=== PATIENT | female | born 1955 | race Caucasian/White ===

== ENCOUNTER → 2023-06-26 | Outpatient (CLI) | payer OTHER | END | disposition home or self-care (01) | LOC: RAH 11:07 | PROVIDERS: ATTEND Internal Medicine | DX: Z12.31 Encounter for screening mammogram for malignant neoplasm of breast (principal); I25.10 Atherosclerotic heart disease of native coronary artery without angina pectoris | CPT/HCPCS: 77067 ==

== ENCOUNTER 2024-06-18 18:34 | Emergency (ER) | payer OTHER ==
[~2024-06-18] VITALS: Ht 160 cm; Wt 53.1 kg
[2024-06-18] MEDS: teTANUS/diphthERIA TOXOID [ADULT] 0.5 ML VIAL IM ONE (20:06)
--- NOTE | 2024-06-18 20:20 | HMCIMG ---
CT HEAD/BRAIN W/O CONTRAST CLINICAL HISTORY: fall, lac COMPARISON: None TECHNIQUE: Multiple sequential axial images of the head were obtained from the base of the skull through vertex. CT was performed with one or more of the following dose reduction techniques: automated exposure control, adjustment of the mA and/or kV according to patient size, or use of iterative reconstruction technique FINDINGS: There is mild atrophy and small vessel disease. The orbital contents, paranasal sinuses and mastoid air cells are within normal limits. The calvarium demonstrates nondisplaced occipital skull fracture demonstrated on images 14 through 17 of series 3.. Note is made of a occipital scalp small hematoma. IMPRESSION: Occipital scalp hematoma with underlying nondepressed skull fracture.
--- NOTE | 2024-06-18 20:50 | ERN ---
General Chief Complaint: Head Injury Stated Complaint: HEAD TRAUMA. LACERATION TO POSTERIOR HEAD Time Seen by MD: 18:36 Time Seen by Midlevel: 18:36 Source: patient, family History of Present Illness Initial Comments Patient is a 68-year-old female being brought in by family member for evaluation of a head injury. Patient does admit to drinking vodka in her coffee this morning. Just prior to arrival she states she was walking when her shoe got caught in the carpet and she slipped and fell backwards hitting the back of her head. She denies any loss of consciousness or being on any blood thinners. On arrival patient initially denied any imaging however after further discussion she agreed to get a CT scan of the head. Allergies: Coded Allergies: No Known Allergies (Verified Allergy, 05/21/13) Past Medical History Past Medical History: Diabetes-Type II Past Surgical History: Other ROS Dictation CONSTITUTIONAL: Negative except for HPI HEAD/FACE: Negative except for HPI EENT: Negative except for HPI RESPIRATORY: Negative except for HPI GASTROINTESTINAL/ABDOMINAL: Negative except for HPI GENITOURINARY: Negative except for HPI MUSCULOSKELETAL: Negative except for HPI INTEGUMENTARY: Negative except for HPI NEUROLOGICAL/PSYCH: Negative except for HPI HEMATOLOGIC/LYMPHATIC: Negative except for HPI All Systems Negative, Except as noted above. 13 point review of systems assessed and all negative except for above. Physical Exam Physical Exam Dictation Vital Signs reviewed General Appearance: Alert, oriented x 3, no acute distress, well developed, nourished. Head and Face: non-traumatic. Eyes: PERRL, pink conjunctivas, eyelid no trauma, anterior chamber with arcus senilis. Ears: Pinnas intact and no signs of trauma or erythema ear canals clear and no discharge TM no erythema Nose: No discharge, no bleeding. Oropharynx: Mouth normal, tongue pink, pharynx clear,no erythema, tonsils no exudates, no abscesses noted, mucous membrane moist Neck: Supple, non-tender, no thyromegaly, no masses, no JVD, no bruits Breast:Deferred Chest:No tenderness, no crepitus, no paradoxical movement, no retractions Lungs:Clear, well-ventilated, symmetric, no rales, no wheezing, no rhonchi, no stridor, good breath sounds bilaterally Heart: Regular rate, regular rhythm, no murmur, no gallops Vascular: no peripheral edema, Abdomen: Soft, positive bowel sounds, nondistended, no guarding, nontender, no rebound, no masses no hepatomegaly, no splenomegaly, no Jones's sign, no hernias. Rectal: Deferred Genital: Deferred Neurological: Normal speech, motor function intact, sensory function intact Musculoskeletal: Neck nontender, full range of motion, back nontender, full range of motion, Extremities: nontender, full range of motion Skin: x shaped laceration to the occipital scalp. Lymphatic: Deferred MDM Patient is a 68-year-old female being brought in by family member for evaluation of a head injury. Patient does admit to drinking vodka in her coffee this morning. Just prior to arrival she states she was walking when her shoe got caught in the carpet and she slipped and fell backwards hitting the back of her head. She denies any loss of consciousness or being on any blood thinners. On arrival patient initially denied any imaging however after further discussion she agreed to get a CT scan of the head. There is an X shaped laceration to the occipital scalp. CT scan of the head reveals an occipital non depressed skull fracture. This was discussed with the patient who is refusing to be admitted. Patient states she only wants her laceration to be repaired with an and would like to leave home. I discussed in depth the risks of signing out against medical advice however patient understands the risks and would like to sign out against medical advice. Patient has a family member at bedside who will be taking her home. Patient was given 1 g of Ancef and a tetanus shot prior to discharge. Laceration was repaired with six an. Wound care instructions were given to the patient and she signed out against medical advice. ED Course Orders Procedure Category Date Status Time Ct Head/Brain W/O CT 06/18/24 Resulted Contrast 18:46 Tetanus,Diphtheria PHA 06/18/24 Complete Tox [Adult] (Diphther 19:00 Cefazolin Sodium 1 Gm PHA 06/18/24 Complete Vial (Ancef 1 Gm V 21:00 Water For PHA 06/18/24 Complete Injection,Sterile 20:44 Current Medications Medications (Trade) Dose Ordered Sig/Evelin Route PRN Reason Start Time Stop Time Status Last Admin Dose Admin Cefazolin Sodium (ANCEF 1 gm vial) 1 gm ONCE ONCE IVPB 06/18/24 21:00 06/18/24 21:01 DC 06/18/24 20:57 Sterile Water (Sterile Water, Injection) 10 ml STK-MED ONCE .ROUTE 06/18/24 20:44 06/18/24 20:44 DC Tetanus/ Diphtheria Toxoids Adsorbed (DiphthERIA-teTANUS TOXOID [ADULT]/ DECAVAC) 0.5 ml ONCE ONCE IM 06/18/24 19:00 06/18/24 19:01 DC 06/18/24 20:06 Vital Signs Date Time Temp Pulse Resp B/P (MAP) Pulse Ox O2 Delivery O2 Flow Rate FiO2 06/18/24 21:00 98.4 70 18 136/70 96 Room Air* 0 21 06/18/24 20:06 98.2 74 18 140/73 95 Room Air* 0 21 06/18/24 18:35 97.5 69 14 156/77 95 Room Air 0 [place] [address] [address] IMAGING REPORT Signed PATIENT: ANAM APONTE MR#: [id number] : 1955 SEX: F AGE: 68 LOCATION: [facility] ORDER 46 STATUS: [facility] REPORT#: [id number] SERVICE 45 REASON: fall, lac ORDERING PHYSICIAN: RONALD RUIZ MD PROCEDURE: HEAD WO - CT HEAD/BRAIN W/O CONTRAST CT HEAD/BRAIN W/O CONTRAST CLINICAL HISTORY: fall, lac COMPARISON: None TECHNIQUE: Multiple sequential axial images of the head were obtained from the base of the skull through vertex. CT was performed with one or more of the following dose reduction techniques: automated exposure control, adjustment of the mA and/or kV according to patient size, or use of iterative reconstruction technique FINDINGS: There is mild atrophy and small vessel disease. The orbital contents, paranasal sinuses and mastoid air cells are within normal limits. The calvarium demonstrates nondisplaced occipital skull fracture demonstrated on images 14 through 17 of series 3.. Note is made of a occipital scalp small hematoma. IMPRESSION: Occipital scalp hematoma with underlying nondepressed skull fracture. DICTATED BY: MILES PONCE DO DATE: 06/18/242014 ELECTRONICALLY SIGNED BY: MILES PONCE DO DATE: 06/18/242019 Laceration/Wound Repair Laceration/Wound Repair : Wound Location: head Wound Length (cm): 3 Wound's Depth, Shape: superficial Wound Explored: clean Betadine Prep?: No Wound Debrided: moderate Wound Repaired With: an Sterile Dressing Applied?: No DX & DISP Disposition: AMA Departure Impression: Primary Impression: Occipital bone fracture Condition: Stable Referrals: ABBY DAVIS MD (PCP) I have reviewed the case, and I agree with, Diagnosis and Plan ARIAS TAVARES Jun 18, 2024 20:50
[2024-06-18] MEDS: ceFAZolin SODIUM 1 GM VIAL IVPB ONE (20:57)
[2024-06-18 21:00] VITALS: BP 136/70; PULSE 70; RESP 18; TEMP 98.4; O2SAT 96
== END 2024-06-18 20:59 | disposition left against medical advice (07) ==
LOC: EDH 18:34
DX: S09.8XXA Other specified injuries of head, initial encounter (principal); S02.118A Other fracture of occiput, unspecified side, initial encounter for closed fracture; S01.01XA Laceration without foreign body of scalp, initial encounter; E11.9 Type 2 diabetes mellitus without complications; Z98.890 Other specified postprocedural states; W01.198A Fall on same level from slipping, tripping and stumbling with subsequent striking against other object, initial encounter; Y93.01 Activity, walking, marching and hiking; Y92.89 Other specified places as the place of occurrence of the external cause; Y99.8 Other external cause status
CPT/HCPCS: 99285; 96374; 70450; 90714; 90471; 12002; J0690

== ENCOUNTER 2024-06-19 06:07 | Emergency (ER) | payer OTHER ==
[~2024-06-19] VITALS: Ht 160 cm; Wt 54.4 kg
[2024-06-19 06:08] VITALS: TEMP 95.6
[2024-06-19 06:10] VITALS: BP 140/75; PULSE 71; RESP 19; O2SAT 98
[2024-06-19 06:19] LABS: BASOPHILS # (AUTO) 0.05 K/uL (0.00-0.20); BASOPHILS % (AUTO) 0.7 % (0.0-5.0); EOSINOPHILS # (AUTO) 0.14 K/uL (0.00-0.70); EOSINOPHILS % (AUTO) 1.9 % (0.0-8.0); HEMATOCRIT 40.8 % (36-48); IMMATURE GRANULOCYTE ABSOLUTE 0.04 K/uL (0-1); LYMPHOCYTES # (AUTO) 1.6 K/uL (1.0-4.8); LYMPHOCYTES % (AUTO) 21.2 % (21.0-51.0); MEAN CORPUSCULAR HEMOGLOBIN 33.9 pg (27.0-33.0); MEAN CORPUSCULAR HGB CONC 34.6 g/dL (32.0-36.0); MEAN CORPUSCULAR VOLUME 98.1 fL (79-99); MONOCYTES # (AUTO) 0.8 K/uL (0.1-1.0); NEUTROPHILS # (AUTO) 4.7 K/uL (1.8-7.7); NEUTROPHILS % (AUTO) 64.7 % (40.0-77.0); PLATELET COUNT (AUTO) 81 K/uL (130-400); RED BLOOD CELL COUNT(AUTO) 4.16 MIL/uL (4.00-5.50); RED CELL DISTRIBUTION WIDTH 13.7 % (11.0-15.5); WHITE BLOOD COUNT (AUTO) 7.3 K/uL (4.8-10.8)
[2024-06-19 06:28] LABS: CREATININE 0.6 mg/dL (0.5-1.0); POTASSIUM 3.2 mmol/L (3.5-5.1)
[2024-06-19 06:30] LABS: INR 1.14 (0.85-1.15); PROTHROMBIN TIME 12.2 SEC (9.6-11.6)
[2024-06-19 06:32] LABS: PARTIAL THROMBOPLASTIN TIME 30.9 SEC (26.3-35.5)
[2024-06-19 06:39] LABS: ALBUMIN 3.5 g/dL (3.5-5.0); TOTAL PROTEIN, SERUM 7.6 g/dL (6.0-8.3)
[2024-06-19] MEDS: KCL 20 MEQ ERTAB PO ONE (09:55)
== END 2024-06-19 09:43 | disposition home or self-care (01) ==
LOC: EDH 06:07
DX: S02.11HA Other fracture of occiput, left side, initial encounter for closed fracture (principal); S01.01XA Laceration without foreign body of scalp, initial encounter; E11.9 Type 2 diabetes mellitus without complications; F10.10 Alcohol abuse, uncomplicated; Z90.710 Acquired absence of both cervix and uterus; X58.XXXA Exposure to other specified factors, initial encounter; Y93.89 Activity, other specified; Y92.89 Other specified places as the place of occurrence of the external cause; Y99.8 Other external cause status
CPT/HCPCS: 36415; 70450; 80053; 82550; 85025; 85610; 85730

== ENCOUNTER 2024-07-05 10:44 | Emergency (ER) | payer OTHER ==
[~2024-07-05] VITALS: Ht 160 cm; Wt 52.2 kg
[2024-07-05 11:42] VITALS: BP 132/89; PULSE 60; RESP 16; TEMP 98; O2SAT 98
== END 2024-07-05 11:48 | disposition home or self-care (01) ==
LOC: EDH 10:44
DX: S01.01XD Laceration without foreign body of scalp, subsequent encounter (principal); Z48.02 Encounter for removal of sutures; W18.39XD Other fall on same level, subsequent encounter
CPT/HCPCS: 99282

== ENCOUNTER → 2024-08-05 | Outpatient (CLI) | payer OTHER | END | disposition home or self-care (01) | LOC: RAH 13:07 | PROVIDERS: ATTEND Internal Medicine | DX: Z12.31 Encounter for screening mammogram for malignant neoplasm of breast (principal); R92.333 Mammographic heterogeneous density, bilateral breasts | CPT/HCPCS: 77067 ==

== ENCOUNTER → 2024-12-01 | Outpatient (CLI) | payer OTHER ==
--- NOTE | 2024-12-01 14:16 | HMCIMG ---
US BREAST BILATERAL REASON: ABSCESS OF BREAST AND NIPPLE. COMPARISON: Mammogram from August 05, 2024 TECHNIQUE: Bilateral breast ultrasound study was performed. FINDINGS: Over the region of interest in the retroareolar region of right breast, there is complex structure with peripheral flow measuring 13 x 6 x 12 mm may be related to abscess. There are bilateral inguinal nipples. There are bilateral axillary lymph nodes with right measuring 10 x 5 x 12 mm and left measuring 12 x 4 x 6 mm. IMPRESSION: Complex structure with peripheral flow measuring 13 x 6 x 4 mm may be related to abscess.
== END | disposition home or self-care (01) ==
LOC: RAH 12:50
PROVIDERS: ATTEND Internal Medicine
DX: N61.1 Abscess of the breast and nipple (principal)

== ENCOUNTER → 2025-05-01 | Outpatient (CLI) | payer OTHER ==
--- NOTE | 2025-05-02 08:11 | HMCIMG ---
Breast ultrasound (of both breasts). CLINICAL INDICATION: Right breast recommend nipple abscess with drainage. COMPARISON: Prior study from 12/01/2024 is available.. FINDINGS: The right breast breast demonstrate hypoechoic ill-defined lesion seen in subareolar region measuring 2.7 x 0.9 x 1.4 cm. This has increased in size as compared to prior ultrasound. The technologist noticed is drainage from this collection. This appears to be a phlegmon. There is also axillary small benign-appearing lymph node. The left breast has a small benign axillary lymph nodes are otherwise it has a heterogeneous echotexture with no masses is seen. IMPRESSION: Hypoechoic lesion seen in the right breast subareolar region measuring 2.7 x 0.9 x 1.4 cm with drainage suggesting of a phlegmon. Left breast sonogram appears to be normal. . CATEGORY 2: BENIGN FINDINGS Recommend monthly self breast exam as well as annual clinical examination. A negative x-ray should not delay biopsy if a dominant or clinically suspicious mass is present, since 8-10% of cancers are not identified by mammography. Dense breasts particularly, may obscure an underlying neoplasm. Some of these may be detected clinically and therefore, clinical examination is an essential part of breast evaluation.
--- NOTE | 2025-05-02 08:16 | HMCIMG ---
DIGITAL BILATERAL SCREENING MAMMOGRAM Technique: The digital mammographic examination of both breasts in craniocaudal and mediolateral oblique views along with CAD was obtained. History: This is a 69 years year-old female 3, para.3, AB 0 Patient has no family history of breast cancer. Patient right breast abscess drainage around the nipple region. Patient has been on a course of the body. Patient has a known history of bacterial infection. Reference: Mammogram from 08/05/2024, 06/26/2023, 09/23/2017, 08/12/2016, 09/21/2013, 02/25/2012, and 08/30/2007 are available. Breast composition: Breast composition C: The breasts are heterogeneously dense, which may obscure small masses. Finding: The digital mammographic examination of both breasts in craniocaudal and mediolateral oblique view along with CAD demonstrates both breasts to be moderately heterogeneously dense. The right breast appears to be more dense than the left. The ultrasound demonstrate there is a retroareolar abscess which has increased in size as compared to prior study.. There is no evidence of any dendritic mass, cluster microcalcification or architectural distortion. The Tomosynthesis demonstrates no lesion seen. The retromammary fat appears to be normal. IMPRESSION: Right breast appears to be more dense in the retroareolar region which ultrasound demonstrated a hypoechoic lesion suggesting a phlegmon. There is no abscess pocket seen under ultrasound.. FINAL ASSESSMENT: ACR: BI-RAD- 2. Benign: Also a negative assessment; finding(s) benign abnormalities. Management: Routine mammography screening. Likelihood of Cancer: Essentially 0% likelihood of malignancy. NOTE: IF A WORK-UP OF THIS PATIENT LEADS TO A BIOPSY, PLEASE FORWARD A COPY OF THE PATHOLOGY REPORT TO OUR OFFICE REQUIRED BY [employer] JULY 19, 1994. A NEGATIVE MAMMOGRAM SHOULD NOT PRECLUDE BIOPSY OF A CLINICALLY PALPABLE SUSPICIOUS MASS, 10% OF BREAST CANCERS ARE MAMMOGRAPHICALLY OCCULT. THIS MAMMOGRAPHY FACILITY IS FULLY ACCREDITED BY THE FOOD AND DRUG [employer]MINISTRATION (FDA). THANK YOU FOR THIS REFERRAL.
== END | disposition home or self-care (01) ==
LOC: RAH 13:45
PROVIDERS: ATTEND Surgery
DX: N63.11 Unspecified lump in the right breast, upper outer quadrant (principal); N61.1 Abscess of the breast and nipple; R92.333 Mammographic heterogeneous density, bilateral breasts; R59.0 Localized enlarged lymph nodes
CPT/HCPCS: 77066

== ENCOUNTER → 2025-06-14 | Emergency (ER) | payer OTHER ==
[~2025-06-14] VITALS: Ht 157.5 cm; Wt 52.2 kg
[2025-06-14 09:56] LABS: IMMATURE GRANULOCYTE ABSOLUTE 0.06 K/uL (0-1); NUCLEATED RED BLOOD CELLS 0.0 % (0.0-0.19); PLATELET COUNT (AUTO) 177 K/uL (130-400); RED BLOOD CELL COUNT(AUTO) 2.65 MIL/uL (4.00-5.50); RED CELL DISTRIBUTION WIDTH 16.2 % (11.0-15.5); WHITE BLOOD COUNT (AUTO) 10.3 K/uL (4.8-10.8)
[2025-06-14 09:58] VITALS: BP 127/60; PULSE 102; RESP 19; TEMP 98.3; O2SAT 97
[2025-06-14 10:05] LABS: CREATININE 1.0 mg/dL (0.5-1.0); GLOMERULAR FILTR. RATE CALC 62.0 mL/min (>90); GLUCOSE,RANDOM 204.0 mg/dL (70-105); SODIUM SERUM 134.0 mmol/L (136-145); UREA NITROGEN, BLOOD 33.0 mg/dL (7-18)
[2025-06-14 10:07] LABS: INR 1.26 (0.85-1.15)
--- NOTE | 2025-06-14 10:09 | NUR ---
RECEIVED CONSENT FROM PATIENT FOR PARACENTESIS
--- NOTE | 2025-06-14 11:31 | ERN ---
General Chief Complaint: Shortness of Breath Stated Complaint: SOB Time Seen by MD: 09:36 Source: patient History of Present Illness Initial Comments THIS IS A 69-YEAR-OLD FEMALE COMING IN COMPLAINING OF ABDOMINAL DISTENTION. PATIENT DOES HAS A HISTORY OF LIVER CIRRHOSIS AND FREQUENTLY PRESENTS WITH A ASCITES BUILDUP. Allergies: Coded Allergies: No Known Allergies (Verified Allergy, 05/21/13) Past Medical History Past Medical History: Diabetes-Type II, Liver Disease Past Surgical History: Hysterectomy, Surgical History Other: RT BREAST BX Female( History) History: Not Applicable Results Laboratory and Microbiology Lab and Micro Result Laboratory Tests Test 06/14/25 09:51 White Blood Count 10.3 K/uL (4.8-10.8) Red Blood Count 2.65 MIL/uL (4.00-5.50) L Hemoglobin 7.5 g/dL (12.0-16.0) L Hematocrit 23.8 % (36-48) L Mean Corpuscular Volume 89.8 fL (79-99) Mean Corpuscular Hemoglobin 28.3 pg (27.0-33.0) Mean Corpuscular Hemoglobin Concent 31.5 g/dL (32.0-36.0) L Red Cell Distribution Width 16.2 % (11.0-15.5) H Platelet Count 177 K/uL (130-400) Mean Platelet Volume 12.1 fL (7.5-10.5) H Immature Granulocyte % (Auto) 0.6 % (0-1) Neutrophils (%) (Auto) 72.5 % (40.0-77.0) Lymphocytes (%) (Auto) 11.9 % (21.0-51.0) L Monocytes (%) (Auto) 13.2 % (3.0-13.0) H Eosinophils (%) (Auto) 0.9 % (0.0-8.0) Basophils (%) (Auto) 0.9 % (0.0-5.0) Neutrophils # (Auto) 7.5 K/uL (1.8-7.7) Lymphocytes # (Auto) 1.2 K/uL (1.0-4.8) Monocytes # (Auto) 1.4 K/uL (0.1-1.0) H Eosinophils # (Auto) 0.09 K/uL (0.00-0.70) Basophils # (Auto) 0.09 K/uL (0.00-0.20) Absolute Immature Granulocyte (auto 0.06 K/uL (0-1) Nucleated Red Blood Cells 0.0 % (0.0-0.19) Prothrombin Time 13.1 SEC (9.6-11.6) H Prothromb Time International Ratio 1.26 (0.85-1.15) H Sodium Level 134 mmol/L (136-145) L Potassium Level 4.4 mmol/L (3.5-5.1) Chloride Level 99 mmol/L (101-111) L Carbon Dioxide Level 23 mmol/L (21-32) Blood Urea Nitrogen 33 mg/dL (7-18) H Creatinine 1.0 mg/dL (0.5-1.0) Glomerular Filtration Rate Calc 62 mL/min (>90) Random Glucose 204 mg/dL (70-105) H Total Calcium 8.6 mg/dL (8.5-10.1) Labs Reviewed?: Yes MDM MDM: DIFFERENTIAL DIAGNOSIS: ABDOMINAL DISTENTION, ASCITES, HISTORY OF LIVER CIRRH OSIS, RATIONALE: TESTS CONSIDERED AND ORDERED SECONDARY TO SHARED DECISION MAKING INCLUDE: PREVIOUS OUTSIDE RECORDS REVIEWED: OLD ER VISITS. RISK OF COMPLICATION AND/OR MORBIDITY OR MORTALITY OF PATIENT MANAGEMENT: NONE MEDICATIONS-PER MEDICATION RECONCILIATION NEED FOR HOSPITALIZATION: PATIENT DOES NOT MEET CRITERIA FOR HOSPITALIZATION. NEED FOR EMERGENCY MAJOR/MINOR SURGERY: NO THERE ARE NO SOCIAL CONCERNS WITH THIS PATIENT. PRESCRIPTION DRUG MANAGEMENT PRESCRIPTIONS WILL INCLUDE SYMPTOMATIC CARE PATIENT'S PRIOR EXTERNAL MEDICAL RECORDS FROM OTHER ER VISITS WERE REVIEWED BY ME INDICATED. PRIOR TESTING AND RESULTS FROM PREVIOUS VISITS WERE REVIEWED. PRIOR TESTS WERE TAKEN INTO ACCOUNT WITH MEDICAL DECISION MAKING AND RESOURCE UTILIZATION, INDEPENDENT HISTORIAN/HISTORIANS WERE USED TO OBTAIN COMPLETE MEDICAL HISTORY. I INDEPENDENTLY INTERPRETED THE TEST THAT WERE PERFORMED, RESULTS WERE REVIEWED BY ME AND CONSIDERED FINDINGS ON RADIOLOGY IF ORDERED. MEDICAL MANAGEMENT AND EXAMINATION INTERPRETATION DISCUSSIONS WERE HAD BY ME WITH OTHER QUALIFIED HEALTHCARE PROFESSIONALS INDICATED FOR THE PATIENT'S CARE. WAS INFORMED BY NURSING STAFF THAT PATIENT ELOPED FROM ER WITHOUT NOTIFYING ANYBODY. ED Course Orders Procedure Category Date Status Time Cbc With Differential LAB 06/14/25 Complete 09:36 Basic Metabolic Panel LAB 06/14/25 Complete 09:36 Prothrombin Time With LAB 06/14/25 Complete INR 09:36 Ct Abdomen/Pelvis W/O CT 06/14/25 Taken Contrast 12:17 Us Abd Limited/Abd US 06/14/25 Taken Wall 09:36 Vital Signs Date Time Temp Pulse Resp B/P (MAP) Pulse Ox O2 Delivery O2 Flow Rate FiO2 06/14/25 09:58 98.2 102 19 127/60 97 Room Air* 0 21 06/14/25 09:35 98.2 104 20 128/55 100 Room Air 0 DX & DISP Disposition: AMA Departure Impression: Primary Impression: Abdominal distention Condition: Stable Additional Instructions: WAS INFORMED BY NURSING STAFF THE PATIENT ELOPED FROM ED Referrals: ABBY DAVIS MD (PCP) Time of Disposition: 13:36 ILANA STEVENSON MD Jun 14, 2025 11:31
--- NOTE | 2025-06-14 13:04 | NUR ---
PATIENT ALERT X4 PATIENT GOT BACK FROM CT SCAN AND WAS AGITATED THAT THE REPORT HAS NOT BEEN UP YET, I LET HER KNOW THAT THE REPORT CAN TAKE UP TO AN HOUR AND SHE REPLIED "BULLSHIT IT SHOULDNT TAKE THAT LONG", I TRIED TO CALM HER DOWN AND LET DR STEVENSON KNOW OF THE SITUATION BUT BY THAT TIME SHE HAD WALKED OUT OF ED INTO THE ED LOBBY PATIENT HAD NO IV IN PLACE AFTER WALKING OUT
--- NOTE | 2025-06-14 13:46 | HMCIMG ---
EXAM: CT Abdomen and Pelvis Without IV contrast CLINICAL HISTORY: ABD DISTENSION TECHNIQUE: Axial computed tomography images of the abdomen and pelvis without intravenous contrast. CONTRAST: No IV contrast. COMPARISON: None provided. FINDINGS: LUNG BASES: Linear atelectatic bands in the right middle lobe, right lower lobe, and lingula. No pleural effusions are seen. LIVER: Hypertrophy of the left lobe of the liver and the caudate lobe with surface irregularity. GALLBLADDER AND BILE DUCTS: The gallbladder appears within normal limits. Two calculi in the fundus of the gallbladder largest measuring 7.4 x 5.5 mm. No biliary ductal dilatation is evident. PANCREAS: The pancreas is atrophied. SPLEEN: Unremarkable. ADRENAL GLANDS: Unremarkable. KIDNEYS, URETERS, AND BLADDER: The kidneys appear within normal limits. There is no hydronephrosis or hydroureter. No urinary calculi are seen. STOMACH AND BOWEL: Colonic diverticulosis. There is suggestion of diffuse colonic bowel wall thickening from the cecum to the rectum that may be accentuated by underdistention. Recommend repeat CT imaging with both intravenous and enteric/rectal contrast. There is also suggestion of jejunal bowel wall thickening. No pneumatosis intestinalis, pneumoperitoneum, or portal venous gas. Bowel loops remain normal in caliber. APPENDIX: No evidence of acute appendicitis on CT examination. PERITONEUM: Marked ascites. No free air. Diffuse mesenteric and omental fat stranding. LYMPH NODES: No lymphadenopathy is evident. REPRODUCTIVE: Post-hysterectomy status. No adnexal mass. VASCULATURE: No evidence of abdominal aortic aneurysm. Atherocalcific changes in the abdominal aorta and its branches. BONES: No aggressive appearing osseous lesion. No acute osseous pathology is evident. Mild to moderate multilevel degenerative changes in the visualized spine. IMPRESSION: 1. Marked ascites with diffuse mesenteric and omental fat stranding. 2. Diffuse colonic bowel wall thickening from cecum to rectum, possibly accentuated by underdistention. Suggestion of jejunal bowel wall thickening. 3. Hypertrophy of the left lobe of the liver and caudate lobe with surface irregularity compatible with cirrhosis. 4. Recommend repeat CT imaging with both intravenous and enteric/rectal contrast. /[place]
--- NOTE | 2025-06-14 14:46 | HMCIMG ---
US ABD LIMITED/ABD WALL REASON: abd distension rule out ascites COMPARISON: None FINDINGS: There is normal sonographic appearance of 4 quadrants demonstrate small ascites with no large pocket. This is not amenable for paracentesis. . IMPRESSION: Small ascites seen throughout the abdomen with no large pocket for safe paracentesis.
== END ==
LOC: EDH 09:29
DX: R14.0 Abdominal distension (gaseous) (principal); E11.9 Type 2 diabetes mellitus without complications; Z90.710 Acquired absence of both cervix and uterus
CPT/HCPCS: 36415; 74176; 76705; 80048; 85025; 85610; 99284